=== PATIENT | female | born 1945 ===

== ENCOUNTER 2017-01-10 11:15 | Emergency (ER) | payer BC ==
--- NOTE | 2017-01-10 12:26 | UC ---
Complaint Female HPI - HPI Summary HPI Summary: Dysuria, frequency, urgency, incontinence since this morning. Pt has very frequent UTIs, has seen urology before. Allergic to most meds, but barnes ok on 10 days of macrobid. - History Of Current Complaint Chief Complaint: [facility] Stated Complaint: URINARY ISSUE Time Seen by Provider: 01/10/17 12:08 Hx Obtained From: Patient ?: No Onset/Duration: Gradual Onset, Lasting Hours Timing: Constant Severity Initially: Mild Severity Currently: Moderate Character: Burning Aggravating Factor(s): Urination - Allergies/Home Medications Allergies/Adverse Reactions: Allergies Allergy/AdvReac Type Severity Reaction Status Date / Time Amoxicillin [From Augmentin] Allergy hives and Verified 01/10/17 11:40 itching Clavulanic Acid Allergy hives and Verified 01/10/17 11:40 [From Augmentin] itching Fluconazole [From Diflucan] Allergy Hives Verified 01/10/17 11:38 Iodine Allergy flushed Verified 01/10/17 11:39 hives itchiness Levofloxacin [From Levaquin] Allergy sore in Verified 01/10/17 11:37 mouth Oxycodone Allergy creepy skin Verified 01/10/17 11:38 Sulfa Antibiotics Allergy Hives Verified 01/10/17 11:37 PMH/Surg Hx/FS Hx/Imm Hx Endocrine History: Hypothyroidism GI/ History: Kidney Stones - Surgical History Surgical History: Yes - Family History Known Family History: Positive: Hypertension - Social History Occupation: Retired Alcohol Use: Occasionally Substance Use Type: None Smoking Status (MU): Never Smoked Tobacco Review of Systems Constitutional: Negative Skin: Negative Eyes: Negative ENT: Negative Respiratory: Negative Cardiovascular: Negative Gastrointestinal: Negative Genitourinary: Dysuria, Frequency, Urgency Motor: Negative Neurovascular: Negative Musculoskeletal: Negative Neurological: Negative Psychological: Negative All Other Systems Reviewed And Are Negative: Yes Physical Exam Triage Information Reviewed: Yes Appearance: No Pain Distress, Obese Vital Signs: Initial Vital Signs Temp 98.2 F 01/10/17 11:33 Pulse 55 01/10/17 11:33 Resp 16 01/10/17 11:33 BP 132/66 01/10/17 11:33 Pulse Ox 98 01/10/17 11:33 Vital Signs Reviewed: Yes Eye Exam: Normal, Other - PERRL Eyes: Positive: Conjunctiva Clear ENT Exam: Normal ENT: Positive: Normal ENT inspection, Hearing grossly normal, Pharynx normal, TMs normal Dental Exam: Normal Neck exam: Normal Neck: Positive: Supple, Nontender, No Lymphadenopathy Respiratory Exam: Normal Respiratory: Positive: Chest non-tender, Lungs clear, Normal breath sounds, No respiratory distress, No accessory muscle use Cardiovascular Exam: Normal Cardiovascular: Positive: RRR Abdomen Description: Positive: No Organomegaly, Soft. Negative: CVA Tenderness (R), CVA Tenderness (L) Musculoskeletal Exam: Normal Neurological Exam: Normal Neurological: Positive: Alert Psychological Exam: Normal Skin Exam: Normal Complaint Female Dx - Differential Dx/Diagnosis Provider Diagnoses: UTI Discharge - Discharge Plan Condition: Stable Disposition: HOME Prescriptions: Nitrofurantoin Monohyd Macro [Macrobid] 100 mg PO BID #[id number] cap Patient Education Materials: Urinary Tract Infection in Women (ED) Referrals: No Primary Care Phys,NOPCP [Primary Care Provider] -
--- NOTE | 2017-01-11 16:16 | ED ---
Progress - Progress Note Progress Note: STOP ABX. CX (-). THANKS AKANKSHA Course/Dx - Diagnoses Provider Diagnoses: Dysuria
== END 2017-01-10 12:45 | disposition home or self-care (01) ==
LOC: UCEAST 11:15
DX: N39.0 Urinary tract infection, site not specified (principal); E03.9 Hypothyroidism, unspecified; Z87.442 Personal history of urinary calculi; Z88.0 Allergy status to penicillin; Z88.2 Allergy status to sulfonamides
CPT/HCPCS: 81003; 87086; 99202; G0463